=== PATIENT | male | born 1955 | race Caucasian/White ===

== ENCOUNTER → 2019-04-26 | Outpatient (CLI) | payer OTHER ==
--- NOTE | 2019-04-26 14:16 | REP ---
Right ankle four views: There is soft tissue edema laterally. There is no fracture or dislocation. The mortise is symmetric. There is a calcaneal plantar spur. No calcifications or foreign bodies. Impression: Soft tissue edema laterally. No fracture. Electronically Signed by Tristian Grimes MD 04/26/2019 02:07 P
== END ==
LOC: M RAD 12:45
PROVIDERS: ATTEND Physician Assistant
DX: M79.89 Other specified soft tissue disorders (principal)